=== PATIENT | female | born 1995 | race Caucasian/White ===

== ENCOUNTER 2018-02-01 09:01 | Emergency (ER) | payer BC ==
[~2018-02-01] VITALS: Ht 167.6 cm; Wt 83.0 kg
[2018-02-01 09:04] VITALS: BP 125/60; PULSE 130; RESP 16; TEMP 98.5; O2SAT 100
[2018-02-01] MEDS ORDERED: NORE1CHW CHEW (09:27)
[2018-02-01] MEDS ORDERED: SODIUM CHLOR 0.9% 1000 ML INJ 1,000 ML IV SCH (09:47)
[2018-02-01] MEDS ORDERED: ACETAMINOPHEN 500 MG CPLT PO ONE (10:00)
[2018-02-01] MEDS ORDERED: ONDANSETRON ODT 4 MG TAB PO ONE (10:00)
[2018-02-01 10:08] VITALS: BP 121/82; PULSE 125; RESP 20; O2SAT 98
[2018-02-01 10:18] LABS: AUTOMATED NEUTROPHIL # 8.7 TH/MM3 (1.8-7.7); BASOPHIL % 0.3 % (0.0-2.0); EOSINOPHIL # 0.1 TH/MM3 (0-0.4); HEMATOCRIT 37.3 % (35.0-46.0); HEMOGLOBIN 12.4 GM/DL (11.6-15.3); LYMPH % 8.7 % (9.0-44.0); LYMPHOCYTE # 0.9 TH/MM3 (1.0-4.8); MEAN CELL VOLUME 81.3 FL (80.0-100.0); MEAN CORPUSCULAR HEMOGLOBIN 27.2 PG (27.0-34.0); MEAN CORPUSCULAR HGB CONC 33.4 % (32.0-36.0); MEAN PLATELET VOLUME 8.9 FL (7.0-11.0); MONO % 7.1 % (0.0-8.0); MONOCYTE # 0.7 TH/MM3 (0-0.9); NEUT % 82.9 % (16.0-70.0); PLATELET COUNT 231 TH/MM3 (150-450); RED BLOOD COUNT 4.58 MIL/MM3 (4.00-5.30); RED CELL DISTRIBUTION WIDTH 12.9 % (11.6-17.2); WHITE BLOOD COUNT 10.4 TH/MM3 (4.0-11.0)
[2018-02-01 10:20] LABS: CHLORIDE 106 MEQ/L (98-107); SODIUM (NA) 137 MEQ/L (136-145)
[2018-02-01 10:23] LABS: CALCIUM 8.5 MG/DL (8.5-10.1)
[2018-02-01 10:24] LABS: ALBUMIN 3.1 GM/DL (3.4-5.0); BICARBONATE 22.3 MEQ/L (21.0-32.0); BLOOD UREA NITROGEN 7 MG/DL (7-18); GLUCOSE,RANDOM 107 MG/DL (74-106)
[2018-02-01 10:26] LABS: ALT (GPT) 17 U/L (9-42)
[2018-02-01 10:27] LABS: AST (GOT) 14 U/L (16-38); CREATININE 0.65 MG/DL (0.50-1.00); GLOMERULAR FILTRATION RATE 116 ML/MIN (>89)
[2018-02-01 10:28] LABS: TOTAL BILIRUBIN ADULT 0.3 MG/DL (0.2-1.0); TOTAL PROTEIN 7.3 GM/DL (6.4-8.2)
[2018-02-01 10:29] LABS: ALKALINE PHOSPHATASE 95 U/L (45-117)
[2018-02-01 10:38] LABS: BILIRUBIN, URINE NEG (NEG); BLOOD, URINE NEG (NEG); GLUCOSE,URINE NEG (NEG); KETONE, URINE NEG (NEG); NITRITE,URINE NEG (NEG); URINE COLOR YELLOW (YELLW/STRAW); URINE LEUKOCYTE ESTERASE SMALL (NEG)
[2018-02-01 11:05] VITALS: BP 110/62; PULSE 116; RESP 16; TEMP 99.6; O2SAT 96
[2018-02-01 11:05] LABS: BACTERIA, URINE FEW /hpf; MUCUS URINE FEW /lpf (OCC); WHITE BLOOD CELL CLUMPS FEW
--- NOTE | 2018-02-01 11:05 | PD ---
HPI Chief Complaint: Cold / Flu Symptoms Time Seen by Provider: 09:46 Travel History International Travel<30 days: No Contact w/Intl Traveler<30days: No Traveled to known affect area: No History of Present Illness HPI 22-year-old female here with sore throat and fever 3 days. She also had an episode of nausea and vomiting once this morning. No abdominal pain. No sick contacts or foreign travel. No difficulty swallowing or change in voice. She reports frequent tonsillitis with similar symptoms in the past. She is status post tonsillectomy several years ago. She denies headache, cough, chest pain, shortness of breath, abdominal pain, vaginal discharge, dysuria. PFSH Past Medical History Medical History: Denies Significant Hx ?: Not LMP: 2 WEEKS Ovarian Cysts: Yes (OVARY REMOVED) Past Surgical History Tonsillectomy: Yes Other Surgery: Yes (WISDOM TEETH) Social History Alcohol Use: Yes Tobacco Use: No Substance Use: No Allergies-Medications (Allergen,Severity, Reaction): Coded Allergies: No Known Allergies (Unverified , 02/01/18) Reported Meds & Prescriptions Reported Meds & Active Scripts Active Reported Kaitlib Fe 0.8/25 (Norethindrone-Ethinyl Estradiol) 0.8-25 Mg-Mcg Chew 1 Tab CHEW DAILY Review of Systems Except as stated in HPI: all other systems reviewed are Neg General / Constitutional: Positive: Fever Eyes: No: Visual changes HENT: Positive: Sore Throat, No: Headaches Cardiovascular: No: Chest Pain or Discomfort Respiratory: No: Shortness of Breath Gastrointestinal: Positive: Nausea, Vomiting Genitourinary: No: Dysuria Musculoskeletal: No: Pain Skin: No Rash Neurologic: No: Weakness Physical Exam Narrative GENERAL: Alert and well-appearing 22-year-old female. SKIN: Warm and dry. No rash HEAD: Atraumatic. Normocephalic. EYES: Pupils equal and round. No scleral icterus. No injection or drainage. ENT: Notable pharyngeal erythema. Uvula is midline. Airways patent. Normal phonation. No nasal bleeding or discharge. Mucous membranes pink and moist. NECK: Trachea midline. Mild tender submandibular lymphadenopathy. No meningismus. CARDIOVASCULAR: Regular rate and rhythm. No murmur appreciated. RESPIRATORY: No accessory muscle use. Clear to auscultation. Breath sounds equal bilaterally. GASTROINTESTINAL: Abdomen soft, non-tender, nondistended. MUSCULOSKELETAL: Extremities without clubbing, cyanosis, or edema. No obvious deformities. NEUROLOGICAL: Awake and alert. No obvious cranial nerve deficits. Motor grossly within normal limits. Five out of 5 muscle strength in the arms and legs. Normal speech. Data Data Last Documented VS Vital Signs Date Time Temp Pulse Resp B/P (MAP) Pulse Ox O2 Delivery O2 Flow Rate FiO2 02/01/18 12:15 109 16 107/64 (78) 97 Room Air 02/01/18 11:05 99.6 Orders Orders Complete Blood Count With Diff (02/01/18 09:47) Comprehensive Metabolic Panel (02/01/18 09:47) Lactic Acid Sepsis Protocol (02/01/18 09:47) Lipase (02/01/18 09:47) Urinalysis - C+S If Indicated (02/01/18 09:47) Influenzae A/B Antigen (02/01/18 09:47) Group A Rapid Strep Screen (02/01/18 09:47) Iv Access Insert/Monitor (02/01/18 09:47) Sodium Chlor 0.9% 1000 Ml Inj (Ns 1000 M (02/01/18 09:47) Ondansetron Odt (Zofran Odt) (02/01/18 10:00) Ed Urine Pregnancytest Poc (02/01/18 09:47) Acetaminophen (Tylenol) (02/01/18 10:00) Strep Culture (Group A) (02/01/18 09:50) Urine Culture (02/01/18 10:05) Ceftriaxone Inj (Rocephin Inj) (02/01/18 11:30) Labs Laboratory Tests Test 02/01/18 09:50 02/01/18 10:05 White Blood Count 10.4 TH/MM3 Red Blood Count 4.58 MIL/MM3 Hemoglobin 12.4 GM/DL Hematocrit 37.3 % Mean Corpuscular Volume 81.3 FL Mean Corpuscular Hemoglobin 27.2 PG Mean Corpuscular Hemoglobin Concent 33.4 % Red Cell Distribution Width 12.9 % Platelet Count 231 TH/MM3 Mean Platelet Volume 8.9 FL Neutrophils (%) (Auto) 82.9 % Lymphocytes (%) (Auto) 8.7 % Monocytes (%) (Auto) 7.1 % Eosinophils (%) (Auto) 1.0 % Basophils (%) (Auto) 0.3 % Neutrophils # (Auto) 8.7 TH/MM3 Lymphocytes # (Auto) 0.9 TH/MM3 Monocytes # (Auto) 0.7 TH/MM3 Eosinophils # (Auto) 0.1 TH/MM3 Basophils # (Auto) 0.0 TH/MM3 CBC Comment DIFF FINAL Differential Comment Blood Urea Nitrogen 7 MG/DL Creatinine 0.65 MG/DL Random Glucose 107 MG/DL Total Protein 7.3 GM/DL Albumin 3.1 GM/DL Calcium Level 8.5 MG/DL Alkaline Phosphatase 95 U/L Aspartate Amino Transf (AST/SGOT) 14 U/L Alanine Aminotransferase (ALT/SGPT) 17 U/L Total Bilirubin 0.3 MG/DL Sodium Level 137 MEQ/L Potassium Level 4.1 MEQ/L Chloride Level 106 MEQ/L Carbon Dioxide Level 22.3 MEQ/L Anion Gap 9 MEQ/L Estimat Glomerular Filtration Rate 116 ML/MIN Lactic Acid Level 1.6 mmol/L Lipase 59 U/L Urine Collection Type CLEAN CATCH Urine Color YELLOW Urine Turbidity CLEAR Urine pH 6.0 Urine Specific [place] 1.025 Urine Protein NEG mg/dL Urine Glucose (UA) NEG mg/dL Urine Ketones NEG mg/dL Urine Occult Blood NEG Urine Nitrite NEG Urine Bilirubin NEG Urine Urobilinogen 0.2 MG/DL Urine Leukocyte Esterase SMALL Urine WBC 6-8 /hpf Urine WBC Clumps FEW Urine Squamous Epithelial Cells 3-5 /hpf Urine Bacteria FEW /hpf Urine Mucus FEW /lpf Microscopic Urinalysis Comment CULTURE INDICATED MDM Medical Decision Making Medical Screen Exam Complete: Yes Emergency Medical Condition: Yes Differential Diagnosis Strep pharyngitis, influenza, UTI, other viral illness Narrative Course 22-year-old female here with sore throat and fever for several days. Clinically she is well-appearing. She was noted to be tachycardic on arrival with a heart rate in the 130s. IV access established, 1 L normal saline IV bolus, ODT Zofran administered. Labs reviewed and are reassuring. Rapid strep and influenza negative. UA suggestive of infection. Patient was given 1 g IV Rocephin. On reexam her vital signs have normalized. She reports symptom improvement. She is stable and ready for discharge Diagnosis Primary Impression: UTI (urinary tract infection) Qualified Codes: N30.00 - Acute cystitis without hematuria Referrals: Primary Care Physician Additional Instructions: Medication as directed. Drink plenty of fluid such as water or Gatorade. Return to emergency department if he develop new or worsening symptoms. Follow-up with your primary doctor. Scripts Cephalexin (Keflex) 500 Mg Capsule 500 MG PO Q6H for Infection for 7 Days, #28 CAP 0 Refills Prov: Qi Amos 02/01/18 Disposition: 01 DISCHARGE HOME Condition: Stable Qi Amos February 01, 2018 11:05
[2018-02-01] MEDS ORDERED: cefTRIAXone INJ 1,000 MG in SODIUM CHLORIDE 0.9% INJ 100 ML IV ONE (11:30)
[2018-02-01 12:15] VITALS: BP 107/64; PULSE 109; RESP 16; O2SAT 97
[2018-02-01] MEDS ORDERED: CEPH-460 PO ×2 (12:28→12:33)
== END 2018-02-01 12:37 | disposition home or self-care (01) ==
LOC: PHED 09:01
DX: N30.00 Acute cystitis without hematuria (principal); J02.9 Acute pharyngitis, unspecified; R11.2 Nausea with vomiting, unspecified
CPT/HCPCS: 80053; 81001; 83605; 83690; 84703; 85025; 87081; 87086; 87804; 87880; 96361; 96365; 99284; J0696; J7030